=== PATIENT | male | born 2000 | race Caucasian/White ===

== ENCOUNTER 2022-03-26 22:05 | Emergency (ER) | payer OTHER ==
[2022-03-26] MEDS ORDERED: AMOX TR-K CLV1 EAC4 PO (23:11)
== END 2022-03-26 23:29 | disposition home or self-care (01) ==
LOC: FER 22:05
DX: S61.451A Open bite of right hand, initial encounter (principal); Z23 Encounter for immunization; W54.0XXA Bitten by dog, initial encounter; Y92.009 Unspecified place in unspecified non-institutional (private) residence as the place of occurrence of the external cause
CPT/HCPCS: 73130; 90471; 90715